=== PATIENT | male | born 1965 | race Caucasian/White ===

== ENCOUNTER 2018-11-28 18:54 | Emergency (ER) | payer MEDICAID ==
[~2018-11-28] VITALS: Ht 172.7 cm; Wt 65.7 kg
[~2018-11-28 18:54] MED LIST: DOCU-28 PO
[2018-11-28 19:04] VITALS: BP 114/87
[2018-11-28] MEDS ORDERED: HYDR-4383 PO (19:25)
[2018-11-28] MEDS ORDERED: HYDROcodone/acetaminophen 10/325mg tab PO ONE (19:25)
--- NOTE | 2018-11-28 19:51 | NUR ---
pt does not have cell phone with him. attempts to secure a ride to [place] ongoing. Patrick HenriquezLaure [phone] & [phone] called- invalid numbers; Venancio, dad [phone], message left; Kristian, friend [phone], mailbox full, unable to leave the [facility]. CRN notified of effort. Taxi to be provided to pt's fathers home in [place].
== END 2018-11-28 20:00 | disposition home or self-care (01) ==
LOC: ER 18:55
DX: S82.042A Displaced comminuted fracture of left patella, initial encounter for closed fracture (principal); F31.9 Bipolar disorder, unspecified; F41.9 Anxiety disorder, unspecified; F29 Unspecified psychosis not due to a substance or known physiological condition; F15.90 Other stimulant use, unspecified, uncomplicated; F11.90 Opioid use, unspecified, uncomplicated; Z79.899 Other long term (current) drug therapy; W06.XXXA Fall from bed, initial encounter; Y93.89 Activity, other specified; Y92.148 Other place in prison as the place of occurrence of the external cause; Y99.8 Other external cause status
CPT/HCPCS: 29505; 73564; 99283

== ENCOUNTER 2022-05-07 17:03 | Emergency (ER) | payer MEDICAID ==
[~2022-05-07] VITALS: Ht 170.2 cm; Wt 70.5 kg
[~2022-05-07 17:03] MED LIST changes: +HYDR-4383 PO
[2022-05-07 17:48] VITALS: BP 138/73
[2022-05-07] MEDS ORDERED: ibuprofen 200mg tablet PO ONE (20:45)
== END 2022-05-07 21:12 | disposition home or self-care (01) ==
LOC: ER 17:04
DX: R10.32 Left lower quadrant pain (principal); F31.9 Bipolar disorder, unspecified; F15.10 Other stimulant abuse, uncomplicated; F11.10 Opioid abuse, uncomplicated; Z79.899 Other long term (current) drug therapy; Z79.1 Long term (current) use of non-steroidal anti-inflammatories (NSAID)
CPT/HCPCS: 99282; 99283

== ENCOUNTER 2022-05-09 09:53 | Emergency (ER) | payer MEDICAID ==
[~2022-05-09] VITALS: Ht 170.2 cm; Wt 72.0 kg
[2022-05-09 09:58] VITALS: BP 104/55
== END 2022-05-09 12:08 | disposition home or self-care (01) ==
LOC: ER 09:54
DX: T69.9XXA Effect of reduced temperature, unspecified, initial encounter (principal); F31.9 Bipolar disorder, unspecified; F15.10 Other stimulant abuse, uncomplicated; Z79.899 Other long term (current) drug therapy; X58.XXXA Exposure to other specified factors, initial encounter; Y93.89 Activity, other specified; Y92.89 Other specified places as the place of occurrence of the external cause; Y99.8 Other external cause status
CPT/HCPCS: 99281; 99283